=== PATIENT | male | born 1985 | race Caucasian/White ===

== ENCOUNTER → 2018-07-11 08:54 | Outpatient (CLI) | payer OTHER, SELFPAY ==
--- NOTE | 2018-07-18 07:57 | PM.PFT.1 ---
Pulmonary Function Test Referral & Results Date Patient Seen: 07/11/18 Requesting provider: Anna Persaud Indication: Shortness of breath Results: The spirometry demonstrates an FVC of 5.17 L which is 94% of predicted. The FEV1 was measured at 3.30 L which is 74% of predicted. The FEV1/FVC ratio was 60 for which is 77% of predicted. Following the administration of bronchodilator there was a 25% improvement in FEF 25-75%, and 10% improvement in FEV1. Lung volumes show an SVC of 5.25 L which is 100% of predicted. The diffusing capacity was measured at 39.90 which is 123% of predicted. The maximum voluntary ventilation was normal Interpretation: This study demonstrates perhaps very mild obstructive lung disease based on reduction in FEV1, and shape a flow volume loop. There is minimal evidence of benefit following bronchodilator based on a 10% improvement in FEV1 and a 25% improvement in FEF 25-75% Compared to PFTs performed in June 2017, current study is essentially unchanged
== END ==
PROVIDERS: PCP Family Medicine; Visit Provider Internal Medicine Critical Care Medicine
DX: R06.02 Shortness of breath (principal)
CPT/HCPCS: 94060; 94726; 94729